=== PATIENT | female | born 1965 | race Caucasian/White ===

== ENCOUNTER → 2016-10-09 | Outpatient (CLI) | payer MEDICARE, MEDICAID ==
--- NOTE | 2016-10-09 13:47 | MRI ---
EXAM DESCRIPTION: Brain w/wo Contrast (accession [id number]), Orbit,Face Neck w/o Contrast (accession [id number]) CLINICAL HISTORY: UNSPECIFIED PAPILEDEMA COMPARISON: None TECHNIQUE: Multiplanar, multi sequence MR images of the head and orbits are obtained with and without IV gadolinium contrast using standard imaging protocol. FINDINGS: The midline structures are not displaced. Sulci are age appropriate. The lateral, third, and fourth ventricles are normal in size, shape, and anatomic positioning. Normal lindo-white differentiation is seen. Normal flow voids are seen in the major intracranial vessels including the dural venous sinuses. There is no evidence of mass, mass effect, hydrocephalus, or acute intracranial hemorrhage. No abnormal extra-axial fluid collections are seen. No abnormal areas of enhancement are seen. No abnormal increased signal is seen on FLAIR, T2, or diffusion-weighted sequences. The pituitary is unremarkable. There is a small left maxillary sinus completely opacified with increased T2 material showing mild peripheral enhancement. The mastoid air cells are unremarkable. Thin slice pre and postcontrast MRI images of the orbits show no abnormal enhancement or focal mass. The ocular globes are normal and symmetric. Normal fluid signal in the orbits is seen bilaterally. There is no asymmetric enlargement of the optic nerve. No abnormal enhancement of the optic nerves is seen. The optic chiasm is within normal limits. No pituitary mass seen. Extraocular muscles are symmetric and unremarkable. IMPRESSION: Unremarkable pre and postcontrast MRI of the brain. No MRI evidence of acute intracranial ischemia, mass, or mass effect. Unremarkable pre and postcontrast MRI of the orbits. The ocular globes and optic nerves are symmetric and within normal limits. Findings suggest chronic left maxillary sinusitis with complete fluid signal opacification of a small left maxillary sinus. Electronically signed by: Jimi Jeronimo MD 10/09/2016 1:45 PM [employer]
--- NOTE | 2016-10-09 13:47 | MRI ---
EXAM DESCRIPTION: Brain w/wo Contrast (accession [id number]), Orbit,Face Neck w/o Contrast (accession [id number]) CLINICAL HISTORY: UNSPECIFIED PAPILEDEMA COMPARISON: None TECHNIQUE: Multiplanar, multi sequence MR images of the head and orbits are obtained with and without IV gadolinium contrast using standard imaging protocol. FINDINGS: The midline structures are not displaced. Sulci are age appropriate. The lateral, third, and fourth ventricles are normal in size, shape, and anatomic positioning. Normal lindo-white differentiation is seen. Normal flow voids are seen in the major intracranial vessels including the dural venous sinuses. There is no evidence of mass, mass effect, hydrocephalus, or acute intracranial hemorrhage. No abnormal extra-axial fluid collections are seen. No abnormal areas of enhancement are seen. No abnormal increased signal is seen on FLAIR, T2, or diffusion-weighted sequences. The pituitary is unremarkable. There is a small left maxillary sinus completely opacified with increased T2 material showing mild peripheral enhancement. The mastoid air cells are unremarkable. Thin slice pre and postcontrast MRI images of the orbits show no abnormal enhancement or focal mass. The ocular globes are normal and symmetric. Normal fluid signal in the orbits is seen bilaterally. There is no asymmetric enlargement of the optic nerve. No abnormal enhancement of the optic nerves is seen. The optic chiasm is within normal limits. No pituitary mass seen. Extraocular muscles are symmetric and unremarkable. IMPRESSION: Unremarkable pre and postcontrast MRI of the brain. No MRI evidence of acute intracranial ischemia, mass, or mass effect. Unremarkable pre and postcontrast MRI of the orbits. The ocular globes and optic nerves are symmetric and within normal limits. Findings suggest chronic left maxillary sinusitis with complete fluid signal opacification of a small left maxillary sinus. Electronically signed by: Jimi Jeronimo MD 10/09/2016 1:45 PM P[employer]ER
== END | disposition home or self-care (01) ==
LOC: MRI 10:06
PROVIDERS: ATTEND Family Medicine
DX: H47.10 Unspecified papilledema (principal)

== ENCOUNTER 2016-10-29 13:56 | Emergency (ER) | payer MEDICARE, MEDICAID ==
[2016-10-29 14:14] VITALS: TEMP 98
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
[2016-10-29] MEDS ORDERED: ONDANSETRON INJ 4 MG/2 ML VIAL IV ONE (14:29)
[2016-10-29] MEDS: HYDROmorphone HCL INJ 2 MG/ML VIAL IV ONE ×2 (14:31→15:47)
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
[2016-10-29] MEDS ORDERED: SODIUM CHLORIDE 0.9% 1000ML 1,000 ML IVS ONE ×4 (15:01→15:58)
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
[2016-10-29] MEDS ORDERED: SODIUM CHLORIDE 0.9% 500ML 500 ML ONE (15:42)
[2016-10-29] MEDS ORDERED: KETAMINE HCL 100 MG/ML VIAL IV ONE (16:11)
[2016-10-29 16:16] VITALS: BP 104/70
[2016-10-29 16:39] VITALS: O2SAT 99
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
== END 2016-10-29 16:04 | disposition short-term general hospital (02) ==
LOC: ER 13:56
DX: S06.6X1A Traumatic subarachnoid hemorrhage with loss of consciousness of 30 minutes or less, initial encounter (principal); S36.09XA Other injury of spleen, initial encounter; I95.89 Other hypotension; Y92.410 Unspecified street and highway as the place of occurrence of the external cause; Z79.899 Other long term (current) drug therapy; Z87.891 Personal history of nicotine dependence; V49.9XXA Car occupant (driver) (passenger) injured in unspecified traffic accident, initial encounter; I51.7 Cardiomegaly
CPT/HCPCS: 36415; 70450; 71250; 72125; 74176; 80053; 80307; 80320; 81001; 85025; 86922; 93005; J2405; J7030; J7040; P9016

== ENCOUNTER 2017-01-06 10:05 | Emergency (ER) | payer MEDICARE, MEDICAID ==
[2017-01-06 10:18] VITALS: TEMP 99.2
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
--- NOTE | 2017-01-06 11:17 | ED.PDOC ---
History of Present Illness - General Chief Complaint: Trauma Stated Complaint: FALL Time Seen by Provider: 01/06/17 10:09 Source: patient Exam Limitations: no limitations - History of Present Illness Initial Comments: the patient is a 51-year-old female presenting to the emergency room secondary to right posterior buttock and hip pain after having slipped off of the edge of the bathtub onto the floor, landing on her buttock on the right. The patient already has chronic low back pain with associated sciatica down bilateral lower extremities. The back pain has not changed. She is having a little more tingling down her right leg than before. she is reporting some weakness of the right leg, but upon further evaluation it is limitation due to pain. The patient has pain with active range of motion of the right hip posteriorly. Minimal pain with passive range of motion. She is tender to palpation where she landed. Palpation over this area does increase her sciatica symptoms. No laceration. No visible deformity. No other injuries. Timing/Duration: 24 hours Severity: moderate Improving Factors: immobilization Worsening Factors: movement Associated Symptoms: denies symptoms Allergies/Adverse Reactions: Allergies NO KNOWN ALLERGY Allergy (Verified 07/10/16 09:17) Home Medications: Ambulatory Orders Klonopin 1 mg PO DAILY 08/15/15 Zolpidem Tartrate [Ambien] 10 mg PO BEDTIME 09/14/15 Fluoxetine HCl [Prozac] 40 mg PO DAILY 06/09/16 Cyclobenzaprine HCl 10 mg PO PRN 07/10/16 Mirtazapine [Remeron] 15 mg PO BEDTIME 07/10/16 Review of Systems - Review of Systems Constitutional: States: malaise - chronic EENTM: States: no symptoms reported Respiratory: States: no symptoms reported Cardiology: States: no symptoms reported Gastrointestinal/Abdominal: States: no symptoms reported Genitourinary: States: no symptoms reported Musculoskeletal: States: back pain - chronic Skin: States: no symptoms reported Neurological: States: see HPI, headache - chronic, paresthesia - hronic, tingling - chronic, weakness - hronic Endocrine: States: no symptoms reported All other Systems: No Change from Baseline Past Medical History (General) - Patient Medical History Hx Seizures: No Hx Stroke: No Hx Dementia: No Hx Asthma: No Hx of COPD: No Hx Cardiac Disorders: No Hx Congestive Heart Failure: No Hx Pacemaker: No Hx Hypertension: No Hx Thyroid Disease: No Hx Diabetes: No Hx Gastroesophageal Reflux: No Hx Renal Disease: No Hx Cancer: No Hx of HIV: No Hx Hepatitis C: No Hx MRSA: No Surgical History: other - Vaccination History Hx Tetanus, Diphtheria Vaccination: No Hx Influenza Vaccination: No Hx Pneumococcal Vaccination: No - Social History Hx Tobacco Use: Yes Hx Chewing Tobacco Use: No Hx Alcohol Use: No Hx Substance Use: No Hx Substance Use Treatment: No Hx Depression: No Hx Physical Abuse: No Hx Emotional Abuse: No Hx Suspected Abuse: No - Female History Patient is a Female of Child Bearing Age (10 -59 yrs old): No Patient : No Family Medical History - Family History Mother Family History: Unknown Living Status: Hx Family Hypertension: Yes Hx Cardiac Disease: Yes Hx Family Diabetes: Yes Hx Family Cancer: Yes - lung Father Family History: No Known Hx Family Cancer: Yes - lung Physical Exam - Physical Exam General Appearance: Alert, Comfortable, No apparent distress Eye Exam: bilateral normal Ears, Nose, Throat: hearing grossly normal, normal ENT inspection, normal pharynx Neck: non-tender, full range of motion, supple Respiratory: chest non-tender, lungs clear, normal breath sounds, no respiratory distress, no accessory muscle use Cardiovascular/Chest: normal peripheral pulses, regular rate, rhythm, no edema Peripheral Pulses: radial,right: 2+, radial,left: 2+, dorsalis pedis,right: 2+, dorsalis pedis,left: 2+, posterior tibialis,right: 2+, posterior tibialis,left: 2+ Gastrointestinal/Abdominal: non tender, soft Rectal Exam: deferred Back Exam: no vertebral tenderness, other - chronic changes only Extremity: normal range of motion, no pedal edema, no calf tenderness, normal capillary refill, other - see history of present illness 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 This appears to be due to piriformis syndrome from the blunt trauma. She can continue her home medications. Topical heat and stretching may also help. She needs to ambulate carefully to prevent further falls. X- ray of the pelvis and hip show no fracture or dislocation. She needs to follow- up with her primary care doctor in 5-7 days. ER warnings are given for any acute worsening. she needs to keep follow-up with her pain management doctors as well. Departure - Departure Clinical Impression: Piriformis syndrome of right side Disposition: Discharge to Home or Self Care Condition: Fair Departure Forms: ED Discharge - Pt. Copy, Patient Portal Self Enrollment Instructions: DI for Sciatica Diet: regular diet Activity: increase activity as tolerated Referrals: Sofi Hobson DO [Primary Care Provider] - 1-5 Days Home Medications: Ambulatory Orders Klonopin 1 mg PO DAILY 08/15/15 Zolpidem Tartrate [Ambien] 10 mg PO BEDTIME 09/14/15 Fluoxetine HCl [Prozac] 40 mg PO DAILY 06/09/16 Cyclobenzaprine HCl 10 mg PO PRN 07/10/16 Mirtazapine [Remeron] 15 mg PO BEDTIME 07/10/16 Additional Instructions: the patient is a 51-year-old female presenting to the emergency room secondary to sciatica flare of the right lower extremity after a fall yesterday. This appears to be due to piriformis syndrome from the blunt trauma. She can continue her home medications. Topical heat and stretching may also help. She needs to ambulate carefully to prevent further falls. X- ray of the pelvis and hip show no fracture or dislocation. She needs to follow- up with her primary care doctor in 5-7 days. ER warnings are given for any acute worsening. she needs to keep follow-up with her pain management doctors as well.
[2017-01-06 11:57] VITALS: BP 118/70; O2SAT 96
== END 2017-01-06 11:45 | disposition home or self-care (01) ==
LOC: ER 10:05
DX: G57.01 Lesion of sciatic nerve, right lower limb (principal); Z79.899 Other long term (current) drug therapy; Z87.891 Personal history of nicotine dependence; W17.89XA Other fall from one level to another, initial encounter; Y93.E1 Activity, personal bathing and showering; Y92.89 Other specified places as the place of occurrence of the external cause